=== PATIENT | female | born 1990 | race Caucasian/White ===

== ENCOUNTER 2017-10-16 23:19 | Outpatient (CLI) | payer SELFPAY ==
[~2017-10-16] VITALS: Ht 157.5 cm; Wt 80.9 kg
[2017-10-16 23:42] VITALS: BP 121/69
[2017-10-16 23:46] LABS: MICROSCOPIC INDICATED
[2017-10-17] MEDS ORDERED: PREN-59 PO (00:03)
== END 2017-10-17 00:07 | disposition home or self-care (01) ==
LOC: LDOP 23:19
PROVIDERS: ATTEND Obstetrics & Gynecology
DX: O62.9 Abnormality of forces of labor, unspecified (principal); Z3A.35 35 weeks gestation of pregnancy
CPT/HCPCS: 59025; 81001; 89060; 99211; G0463; Q0114

== ENCOUNTER 2017-10-22 23:32 | Outpatient (CLI) | payer SELFPAY ==
[~2017-10-22] VITALS: Ht 157.5 cm; Wt 88.0 kg
[~2017-10-22 23:32] MED LIST: PREN-59 PO
[2017-10-22 23:40] VITALS: BP 114/63
== END 2017-10-23 00:09 | disposition home or self-care (01) ==
LOC: LDOP 23:32
PROVIDERS: ATTEND Obstetrics & Gynecology
DX: O36.8130 Decreased fetal movements, third trimester, not applicable or unspecified (principal); Z3A.36 36 weeks gestation of pregnancy
CPT/HCPCS: 59025; 99211; G0463

== ENCOUNTER 2017-11-13 05:51 | Inpatient (IN) | payer OTHER ==
[~2017-11-13] VITALS: Ht 160 cm; Wt 80.0 kg
[2017-11-13] MEDS: D5%-LACTATED RINGERS 1,000 ML IV SCH ×3 (05:54→21:54)
[2017-11-13] MEDS ORDERED: OXYTOCIN 30U/ 0.9% NaCL 500ML 500 ML IV PRN (05:54)
[2017-11-13] MEDS ORDERED: OXYTOCIN 30U/ 0.9% NaCL 500ML 500 ML IV ONE (05:54)
[2017-11-13] MEDS ORDERED: TERBUTALINE 1 MG/ML, 1ML IVPush PRN (06:00)
[2017-11-13] MEDS ORDERED: ONDANSETRON ODT 4 MG PO PRN (06:00)
[2017-11-13] MEDS ORDERED: FENTANYL PF 100 MCG/2ML IV PRN (06:00)
[2017-11-13] MEDS ORDERED: CALCIUM CARBONATE 500 MG TAB.CHEW PO PRN (06:00)
[2017-11-13] MEDS ORDERED: FENTANYL PF 100 MCG/2ML IVPush PRN (06:00)
[2017-11-13 06:18] LABS: BASOPHILS # (AUTO) 0.02 x10^3/uL (0-0.1); BASOPHILS % (AUTO) 0 % (0-1); EOSINOPHILS # (AUTO) 0.35 x10^3/uL (0-0.4); EOSINOPHILS % (AUTO) 4 % (1-7); LYMPHOCYTES # (AUTO) 2.34 x10^3/uL (1-3.4); LYMPHOCYTES % (AUTO) 25 % (22-44); MD NO; MEAN CORPUSCULAR HEMOGLOBIN 28.9 pg (27.0-34.8); MEAN CORPUSCULAR HGB CONC 33.5 g/dL (32.4-35.8); MEAN CORPUSCULAR VOLUME 86.1 fL (80-100); MEAN PLATELET VOLUME 9.2 fL (7.4-10.4); MONOCYTES # (AUTO) 0.67 x10^3/uL (0.2-0.8); MONOCYTES % (AUTO) 7 % (2-9); NEUTROPHILS # (AUTO) 5.97 x10^3/uL (1.8-6.8); NEUTROPHILS % (AUTO) 64 % (42-75); PLATELET COUNT 196 x10^3/uL (130-400); RED BLOOD COUNT 4.03 x10^6/uL (3.82-5.3); RED CELL DISTRIBUTION WIDTH 14.3 % (9.6-15.2)
[2017-11-13] MEDS ORDERED: OXYTOCIN 30U/ 0.9% NaCL 500ML 500 ML ONE ×2 (06:36→21:24)
[2017-11-13] MEDS: LACTATED RINGERS 1,000 ML IV SCH ×6 (06:42→21:03)
[2017-11-13 06:54] VITALS: BP 114/63
[2017-11-13] MEDS ORDERED: PLEASE ENTER HEIGHT AND WEIGHT MC SCH (07:00)
[2017-11-13] MEDS ORDERED: CALCIUM CARBONATE 500 MG TAB.CHEW ONE (07:29)
[2017-11-13] MEDS ORDERED: FENTANYL/BUPIV./NS/PF 250 ML EPIDCONT SCH ×2 (11:49→13:03)
[2017-11-13] MEDS ORDERED: NALOXONE 0.4 MG/ML, 1ML IVPush PRN (13:30)
[2017-11-13] MEDS ORDERED: LACTATED RINGERS 1,000 ML IVBOLUS PRN (13:30)
[2017-11-13] MEDS ORDERED: EPHEDRINE 50 MG/ML, 1ML IVPush PRN (13:30)
[2017-11-13] MEDS ORDERED: MISOPROSTOL 200 MCG TABLET ONE (19:31)
[2017-11-13] MEDS ORDERED: LIDOCAINE/PF 1%, 30ML ONE (19:31)
[2017-11-13] MEDS ORDERED: IBUPROFEN 600 MG TABLET ONE (19:32)
[2017-11-13] MEDS: IBUPROFEN 600 MG TABLET PO PRN (21:21)
[2017-11-13] MEDS: OXYTOCIN 30U/ 0.9% NaCL 500ML 500 ML IV SCH (21:29)
[2017-11-13] MEDS ORDERED: ACETAMINOPHEN 325 MG TABLET PO PRN (21:30)
[2017-11-13] MEDS ORDERED: ONDANSETRON 2MG/ML, 2ML IV PRN (21:30)
[2017-11-13] MEDS ORDERED: OXYcodone IR 5MG TABLET PO PRN (21:30)
[2017-11-13] MEDS ORDERED: MISOPROSTOL 200 MCG TABLET PR PRN (21:30)
[2017-11-13] MEDS ORDERED: OXYcodone/APAP 5/325MG TABLET PO PRN (21:30)
[2017-11-13 23:15] VITALS: BP 112/74
[2017-11-14 02:45] VITALS: BP 108/65
[2017-11-14] MEDS: IBUPROFEN 600 MG TABLET PO PRN ×3 (05:15→19:43)
[2017-11-14 05:27] LABS: BASOPHILS # (AUTO) 0.03 x10^3/uL (0-0.1); BASOPHILS % (AUTO) 0 % (0-1); EOSINOPHILS # (AUTO) 0.12 x10^3/uL (0-0.4); EOSINOPHILS % (AUTO) 1 % (1-7); LYMPHOCYTES # (AUTO) 2.04 x10^3/uL (1-3.4); LYMPHOCYTES % (AUTO) 13 % (22-44); MD NO; MEAN CORPUSCULAR HEMOGLOBIN 28.5 pg (27.0-34.8); MEAN CORPUSCULAR HGB CONC 33.3 g/dL (32.4-35.8); MEAN CORPUSCULAR VOLUME 85.5 fL (80-100); MEAN PLATELET VOLUME 8.6 fL (7.4-10.4); MONOCYTES # (AUTO) 1.05 x10^3/uL (0.2-0.8); MONOCYTES % (AUTO) 7 % (2-9); NEUTROPHILS # (AUTO) 12.87 x10^3/uL (1.8-6.8); NEUTROPHILS % (AUTO) 80 % (42-75); PLATELET COUNT 183 x10^3/uL (130-400); RED BLOOD COUNT 3.89 x10^6/uL (3.82-5.3); RED CELL DISTRIBUTION WIDTH 14.6 % (9.6-15.2)
[2017-11-14] MEDS: OXYTOCIN 30U/ 0.9% NaCL 500ML 500 ML IV SCH (07:14)
[2017-11-14] MEDS ORDERED: CALCIUM CARBONATE 500 MG TAB.CHEW ONE (07:18)
[2017-11-14 08:00] VITALS: BP 116/65
[2017-11-14] MEDS: DOCUSATE 100 MG CAPSULE PO PRN ×2 (09:50→19:43)
[2017-11-14] MEDS: PRENATAL VIT/IRON/FA 1 EACH TABLET PO SCH (09:50)
[2017-11-14 12:00] VITALS: BP 110/70
[2017-11-14] MEDS ORDERED: DIPH,PERTUSS(ACELL),TET VAC/PF NC IM-VACC ONE ×2 (19:26→20:00)
[2017-11-14 19:30] VITALS: BP 115/80
[2017-11-15] MEDS: IBUPROFEN 600 MG TABLET PO PRN (06:30)
[2017-11-15] MEDS: PRENATAL VIT/IRON/FA 1 EACH TABLET PO SCH (08:27)
[2017-11-15] MEDS: DOCUSATE 100 MG CAPSULE PO PRN (08:28)
[2017-11-15 08:41] VITALS: BP 113/74
[2017-11-15] MEDS ORDERED: IBUP-1222 PO (09:43)
== END 2017-11-15 11:25 | disposition home or self-care (01) | DRG 775 ==
LOC: LDIP 05:51 → 2NW 23:08
PROVIDERS: ADMIT Obstetrics & Gynecology; ATTEND Obstetrics & Gynecology
PROC: 10E0XZZ Delivery of Products of Conception, External Approach (ICD-10-PCS; principal; 2017-11-13)
DX: O80 Encounter for full-term uncomplicated delivery (principal); Z3A.39 39 weeks gestation of pregnancy; Z37.0 Single live birth
CPT/HCPCS: 36415; 85025; 86850; 86900; 90715; J2590; J3010; J7120